=== PATIENT | male | born 1955 | race Caucasian/White ===

== ENCOUNTER 2021-04-15 08:27 | Emergency (ER) | payer OTHER, SELFPAY ==
[2021-04-15 08:39] VITALS: BP 171/106; PULSE 120; RESP 16; TEMP 37.1; O2SAT 99
--- NOTE | 2021-04-15 09:08 | ED.GENADULT ---
HPI - General Adult General Chief complaint: Unspecified Stated complaint: meat stuck in throat Time Seen by Provider: 04/15/21 09:00 Source: patient and RN notes reviewed Mode of arrival: ambulatory Limitations: no limitations History of Present Illness HPI narrative: 65-year-old male presents with concern for a piece of steak lodged in his throat. Reports this happened last night after dinner. Reports this is happened to him before and he is usually able to get it dislodged, however is not able to get it dislodge this time. He denies any trouble breathing. Reports he is able to swallow saliva, however it is not easy so he has been spitting his saliva into a cup. He reports a history of GERD. MD complaint: Food bolus Related Data Home Medications Medication Instructions Recorded Confirmed No Home Medications 04/15/21 04/15/21 Allergies Allergy/AdvReac Type Severity Reaction Status Date / Time No Known Allergies Allergy Verified 04/15/21 09:07 Review of Systems Review of Systems: CONSTITUTIONAL: Denies malaise, chills, sweats, or fever. ENT: Reports food stuck in his esophagus CARDIOVASCULAR: Denies chest pain, palpitations, or edema. RESPIRATORY: Denies cough or dyspnea. GASTROINTESTINAL: Denies nausea, vomiting All systems reviewed & are unremarkable except as noted in HPI and below PMFSH Comments At time of signature, agree with nursing past medical, surgical, social and family history. There is no relevant family history pertinent to the presenting complaint Exam Narrative: GENERAL: Well-appearing, well-nourished, and in no acute distress. HEAD: Normocephalic, atraumatic. EYES: PERRLA, sclera clear ENT: Nares clear. Mucous membranes moist. Oropharynx without edema, erythema or lesions.No FB visible NECK: Supple. CHEST: No respiratory distress. Clear to auscultation. No bony deformities, no asymmetry. Speaks in full sentences. HEART: Regular rate and rhythm SKIN: Warm, dry NEURO: Alert and oriented x3. PSYCH: Normal mood and affect Course Course Emergency Course: Consulted with [facility] emergency room do not have GI on-call today. Consulted with Dr. Rivas office who is able to see the patient today. Patient agreeable to this plan. Patient is aware of, understands and agrees to be seen by gastroenterology. Patient agrees to proceed directly to idea man office Portions of this record may have been created with voice recognition software Vital Signs Vital signs: Vital Signs Temperature 98.7 F 04/15/21 08:39 Pulse Rate 120 H 04/15/21 08:39 Respiratory Rate 16 04/15/21 08:39 Blood Pressure 171/106 H 04/15/21 08:39 Pulse Oximetry 99 04/15/21 08:39 Temperature 98.7 F 04/15/21 08:39 Pulse Rate 120 H 04/15/21 08:39 Respiratory Rate 16 04/15/21 08:39 Blood Pressure 171/106 H 04/15/21 08:39 Pulse Oximetry 99 04/15/21 08:39 Reviewed. Pt has been instructed to follow up with his primary care provider within the next week regarding his elevated blood pressure today. Medical Decision Making MDM Narrative Medical decision making narrative: Exam findings and history warrant further treatment; patient is non-toxic appearing and is in no distress. Patient is appropriate for outpatient treatment and follow-up. Vital Signs Vital Signs: Vital Signs Temperature 98.7 F 04/15/21 08:39 Pulse Rate 120 H 04/15/21 08:39 Respiratory Rate 16 04/15/21 08:39 Blood Pressure 171/106 H 04/15/21 08:39 Pulse Oximetry 99 04/15/21 08:39 Temperature 98.7 F 04/15/21 08:39 Pulse Rate 120 H 04/15/21 08:39 Respiratory Rate 16 04/15/21 08:39 Blood Pressure 171/106 H 04/15/21 08:39 Pulse Oximetry 99 04/15/21 08:39 Critical Care Time Critical Care Time Critical Care Time: No Discharge Plan Discharge Clinical Impression: Foreign body in esophagus Qualifiers: Encounter type: initial encounter Qualified Code(s): T18.108A - Unspecified for
== END 2021-04-15 09:42 | disposition home or self-care (01) ==
PROVIDERS: Emergency Provider Nurse Practitioner
DX: T18.108A Unspecified foreign body in esophagus causing other injury, initial encounter (principal); X58.XXXA Exposure to other specified factors, initial encounter
CPT/HCPCS: 99212; G0463; J7120

== ENCOUNTER 2021-04-15 09:48 | Day surgery (SDC) | payer OTHER, SELFPAY ==
[2021-04-15 10:27] VITALS: BP 173/106; PULSE 119; RESP 20; TEMP 37; O2SAT 98
[2021-04-15] MEDS: LACTATED RINGERS 1,000 ML 150 ML IV CONT (10:37)
[2021-04-15 10:38] VITALS: BMI 29.5
--- NOTE | 2021-04-15 10:41 | WPDGICN ---
Assessment and Plan Assessment and plan (1) Foreign body in esophagus: Qualifiers: Encounter type: initial encounter Qualified Code(s): T18.108A - Unspecified foreign body in esophagus causing other injury, initial encounter Code(s): T18.108A - Unspecified foreign body in esophagus causing other injury, initial encounter Status: Acute Assessment and Plan: Patient has a food impaction was eating steak last evening. Unable to pass throughout the esophagus. He has been unable to eat or swallow subsequently. EGD will be performed to evaluate treat. (2) Dysphagia: Code(s): R13.10 - Dysphagia, unspecified Status: Acute Assessment and Plan: Patient has longstanding history of difficulty swallowing. Suspicious for esophageal narrowing. This will be evaluated at time of EGD. Suspect he has GE reflux underlying this symptomatology. GI Consult Note Consult date/time: 04/15/21 10:41 HPI: Herbert Landa is a 65 year old male Presents with a food impaction. Patient in usual state of health but was eating a steak last evening. He was eating in a hurry. He subsequently had 5 piece stuck in his chest. Abdomen was subsequently unable to eat or swallow. He has had excess saliva production. And unable to swallow this morning. For this reason he presented to urgent care. It was determined he likely had a food impaction. Subsequently referred to our service for evaluation and treatment. Patient states he has had difficulty swallowing for many years. States that large pieces of food will catch in the mid substernal portion of the chest. He denies any heartburn. He takes no medications for this. Family history is noncontributory. Review of Systems Review of Systems: All systems reviewed & are unremarkable except as noted in HPI and below Meds Home Medications and Allergies Home Medications Medication Instructions Recorded Confirmed Type No Home Medications 04/15/21 04/15/21 History Allergies Allergy/AdvReac Type Severity Reaction Status Date / Time No Known Allergies Allergy Verified 04/15/21 10:26 Vital Signs Vital Signs - 24 hr 04/15/21 10:27 Temperature 98.6 F Pulse Rate 119 H Respiratory Rate 20 Blood Pressure 173/106 H Pulse Oximetry 98 Exam Narrative: Physical exam reveals patient to be alert. Vital signs stable. HEENT exam is unremarkable. Patient is anicteric. Lungs are clear to auscultation and percussion. Heart is without murmur or extra sounds. Abdominal exam bowel sounds are present soft nontender with no organomegaly. Digital rectal exam deferred at this time.
--- NOTE | 2021-04-15 10:50 | WPDANESEPPF ---
Anes - Initial Pre Proc Eval Procedure: Operation Date: 04/15/21 11:30 Proposed Procedures p Esophagogastroduodenoscopy - Herbert Dobbins MD Date/Time: 04/15/21 10:50 Surgeon: Herbert Dobbins MD Pre Op Diagnosis: food bolus Patient Data Age: 65 Gender: M Height: 1.85 m Weight: 101.5 kg Last Vital Signs Temp 37.0 C 04/15/21 10:27 Pulse 119 H 04/15/21 10:27 Resp 20 04/15/21 10:27 BP 173/106 H 04/15/21 10:27 Pulse Ox 98 04/15/21 10:27 Allergies Allergy/AdvReac Type Severity Reaction Status Date / Time No Known Allergies Allergy Verified 04/15/21 10:26 Home Medications Medication Instructions Recorded Confirmed Type No Home Medications 04/15/21 04/15/21 History Patient hx anesthesia problems: none Family hx anesthesia problems: none Results Review: All pre-operative results and documents have been reviewed as part of the pre-operative evaluation. [facility] Social History Social History Alcohol intake: current Drinks per week: 6 Living arrangements: with family Spiritual care concerns: No Anes - Eval Final PreProcedure Day of Procedure 04/15/21 10:50 Patient weight: overweight Heart: regular rate and rhythm Lungs: clear to auscultation and normal air movement Airway: Mallampati scale class II Neurological: alert and oriented Last oral intake: >/= 8 hours ASA classification: II Emergent: no Anesthetic plan: proceed Anesthesia type and monitoring: general ETT Results Review: All pre-operative results and documents have been reviewed as part of the pre-operative evaluation. Informed Consent: The patient's anesthetic plan and its attendant risks and benefits were discussed with the patient/family/POA. Questions were solicited and answers provided to the satisfaction of the patient/family/POA.
[2021-04-15 11:44] VITALS: BP 113/72; PULSE 97; RESP 26; O2SAT 98
[2021-04-15 11:54] VITALS: BP 131/78; PULSE 85; RESP 21; O2SAT 97
[2021-04-15 12:04] VITALS: BP 130/80; PULSE 84; RESP 23; O2SAT 97
== END 2021-04-15 12:24 | disposition home or self-care (01) ==
PROVIDERS: PCP Family Medicine; Visit Provider Internal Medicine Gastroenterology
PROC: 0DJ08ZZ Inspection of Upper Intestinal Tract, Via Natural or Artificial Opening Endoscopic (ICD-10-PCS; CPT 43235; principal; 2021-04-15 11:30)
DX: T18.128A Food in esophagus causing other injury, initial encounter (principal); K22.2 Esophageal obstruction
CPT/HCPCS: 43247; J2704; J7120

== ENCOUNTER 2021-06-02 00:40 | Day surgery (SDC) | payer OTHER, SELFPAY ==
[2021-05-14 14:34] VITALS: BMI 30.5
[2021-06-02 09:47] VITALS: BP 186/103; PULSE 79; RESP 20; TEMP 36.8; O2SAT 99
[2021-06-02] MEDS: LACTATED RINGERS 1,000 ML 150 ML IV CONT (09:51)
--- NOTE | 2021-06-02 10:05 | P.CONGI_ITS ---
Assessment and Plan Assessment and plan (1) Dysphagia: Code(s): R13.10 - Dysphagia, unspecified Status: Acute Assessment and Plan: Patient presents for evaluation of dysphagia. He is known to have esophageal stricture after removal of food impaction food bolus was 6 weeks ago. Patient denies heartburn having taken omeprazole 20mg p.o. daily for 1 month. He does continue to have difficulty swallowing. EGD today with consideration of esophageal stricture dilatation is being planned. Long-term use of PPI is suggested as recurrence is very common. GI Consult Note Consult date/time: 06/02/21 10:05 HPI: Herbert Landa is a 65 year old male Presents for EGD. Patient has a hi story of difficulty swallowing. He presented 6 weeks ago with food impaction. After that he was placed on omeprazole 20mg p.o. daily. He denies any heartburn. He does complain of difficulty swallowing large pieces of food seems to catch and passed slowly through the mid chest. He denies any weight loss. He has had no bleeding. Family history is noncontributory. Patient presents today for dilatation of esophageal stricture. Review of Systems Review of Systems: All systems reviewed & are unremarkable except as noted in HPI and below PMFSH Social History Social History Smoking status: Never smoker Alcohol intake: current Drinks per week: 7 Living arrangements: with family Spiritual care concerns: No Meds Home Medications and Allergies Home Medications Medication Instructions Recorded Confirmed Type No Home Medications 04/15/21 06/02/21 History Allergies Allergy/AdvReac Type Severity Reaction Status Date / Time No Known Allergies Allergy Verified 06/02/21 09:46 Vital Signs Vital Signs - 24 hr 06/02/21 09:47 Temperature 98.2 F Pulse Rate 79 Respiratory Rate 20 Blood Pressure 186/103 H Pulse Oximetry 99 Exam Narrative: Physical exam reveals patient be alert. Vital signs stable. HEENT exam is unremarkable. Patient is anicteric. Lungs are clear to auscultation and percussion heart is without murmur or extra sounds. Abdominal exam bowel sounds are present soft nontender with no hepatosplenomegaly. Rectal exam deferred at this time.
--- NOTE | 2021-06-02 10:29 | P.PNAN_ITS ---
Anes - Initial Pre Proc Eval Procedure: Operation Date: 06/02/21 10:45 Proposed Procedures p Esophagogastroduodenoscopy - Herbert Dobbins MD Date/Time: 06/02/21 10:29 Surgeon: Herbert Dobbins MD Pre Op Diagnosis: esophageal stricture Patient Data Age: 65 Gender: M Height: 1.85 m Weight: 103.9 kg Last Vital Signs Temp 98.2 F 06/02/21 09:47 Pulse 79 06/02/21 09:47 Resp 20 06/02/21 09:47 BP 186/103 H 06/02/21 09:47 Pulse Ox 99 06/02/21 09:47 Allergies Allergy/AdvReac Type Severity Reaction Status Date / Time No Known Allergies Allergy Verified 06/02/21 09:46 Home Medications Medication Instructions Recorded Confirmed Type No Home Medications 04/15/21 06/02/21 History Patient hx anesthesia problems: none Family hx anesthesia problems: none Results Review: All pre-operative results and documents have been reviewed as part of the pre-operative evaluation. [facility] Social History Social History Smoking status: Never smoker Alcohol intake: current Drinks per week: 7 Living arrangements: with family Spiritual care concerns: No Anes - Eval Final PreProcedure Day of Procedure 06/02/21 10:29 Patient weight: obese Heart: regular rate and rhythm Lungs: clear to auscultation Airway: Mallampati scale class II Neurological: alert and oriented Last oral intake: >/= 8 hours ASA classification: II Emergent: no Anesthetic plan: proceed Anesthesia type and monitoring: general GIVS and standard monitoring Results Review: All pre-operative results and documents have been reviewed as part of the pre-operative evaluation. Informed Consent: The patient's anesthetic plan and its attendant risks and benefits were discussed with the patient/family/POA. Questions were solicited and answers provided to the satisfaction of the patient/family/POA.
[2021-06-02 10:53] VITALS: BP 153/100; PULSE 66; RESP 22
[2021-06-02 11:03] VITALS: BP 152/90; PULSE 71; RESP 17
[2021-06-02 11:13] VITALS: BP 156/93; PULSE 62; RESP 16
== END 2021-06-02 11:37 | disposition home or self-care (01) ==
PROVIDERS: Visit Provider Internal Medicine Gastroenterology
PROC: 0DJ08ZZ Inspection of Upper Intestinal Tract, Via Natural or Artificial Opening Endoscopic (ICD-10-PCS; CPT 43235; principal; 2021-06-02 10:45)
DX: R13.10 Dysphagia, unspecified (principal); K20.80 Other esophagitis without bleeding; E66.9 Obesity, unspecified; Z68.30 Body mass index [BMI] 30.0-30.9, adult
CPT/HCPCS: 43239; 88305; J2704; J7120

== ENCOUNTER 2022-02-04 12:48 | Outpatient (CLI) | payer OTHER, SELFPAY ==
--- NOTE | ~2022-02-04 | XR_ITS ---
EXAMINATION: XR foot LT min 3V, XR foot RT min 3V DATE: 02/04/2022 13:07 INDICATION: Gout with pain and swelling throughout both feet TECHNIQUE: 1. Dorsoplantar, two oblique and lateral views of the left foot were obtained. 2. Dorsoplantar, two oblique and lateral views of the right foot were obtained. COMPARISON: None. FINDINGS: Bone alignment is normal at both feet. No fractures. Juxta articular erosions with sclerotic margins and overhanging edges at the heads of the bilateral first metatarsals, the medial base of the lateral first proximal phalanges and at both sides of the right first interphalangeal joint. Moderate polyar ticular osteoarthritis at the bilateral first metatarsophalangeal and interphalangeal joints as well as at a few of the distal interphalangeal joints. Mild osteoarthritis at many of the remaining joints in the bilateral feet. Moderate to large bilateral Achilles and plantar calcaneal spurs. Additional small heterotopic ossicles along the bilateral plantar aponeurosis. Soft tissue swelling about the le ft ankle. No ankle joint effusions. IMPRESSION: 1. Several juxta articular erosions at the bilateral first metatarsophalangeal and right first interp halangeal joints consistent with provided history of gout. 2. Mild to moderate polyarticular osteoarthritis in the bilateral feet most prominent at the first me tatarsophalangeal and a few distal interphalangeal joints. Reviewed, dictated and finalized at location A. IMPRESSION: 1. Several juxta articular erosions at the bilateral first metatarsophalangeal and right first interphalangeal joints consistent with provided history of gout . 2. Mild to moderate polyarticular osteoarthritis in the bilateral feet most pro minent at the first metatarsophalangeal and a few distal interphalangeal joints .
[2022-02-04 14:58] LABS: Uric Acid 6.9 mg/dL (3.5-8.5)
== END 2022-02-04 12:49 | disposition home or self-care (01) ==
PROVIDERS: PCP Internal Medicine; Visit Provider Internal Medicine
DX: M19.072 Primary osteoarthritis, left ankle and foot (principal); M19.071 Primary osteoarthritis, right ankle and foot; M10.9 Gout, unspecified; M79.89 Other specified soft tissue disorders
CPT/HCPCS: 36415; 73630; 84550

== ENCOUNTER 2022-07-09 13:52 | Outpatient (CLI) | payer OTHER, SELFPAY ==
--- NOTE | ~2022-07-09 | XR_ITS ---
XR shoulder LT min 2V DATE: 07/09/2022 14:07 INDICATION: Left shoulder pain, limited upward mobility. No known injury. TECHNIQUE: 4 views COMPARISON: None FINDINGS: No fracture or dislocation, periosteal reaction or bone destruction or significant abnormal soft tissue calcification of the left shoulder. Aortic calcification. IMPRESSION: No significant abnormality of left shoulder Reviewed, dictated and finalized at location B. [employer]
== END 2022-07-09 13:53 | disposition home or self-care (01) ==
PROVIDERS: PCP Internal Medicine; Visit Provider Nurse Practitioner Family
DX: M25.512 Pain in left shoulder (principal)
CPT/HCPCS: 73030

== ENCOUNTER 2022-07-14 13:53 | Outpatient (CLI) | payer OTHER, SELFPAY ==
[2022-07-14 16:39] LABS: Alanine Aminotransferase 28 U/L (6-50); Albumin Level 4.3 g/dL (3.5-5.1); Alkaline Phosphatase 102 U/L (38-126); Anion Gap 8 mmol/L (8-16); Aspartate Amino Transferase 30 U/L (17-59); Bilirubin,Total 0.6 mg/dL (0.2-1.3); Blood Urea Nitrogen 25 mg/dL (9-20); Calcium 9.4 mg/dL (8.4-10.2); Carbon Dioxide 26 mmol/L (22-30); Chloride 106 mmol/L (98-107); Cholesterol 201 mg/dL (0-200); Estimated Glomerular Filt Rate > 60; Glucose 82 mg/dL (65-110); HDL Direct 66 mg/dL; Potassium 4.2 mmol/L (3.4-5.0); Sodium 140 mmol/L (137-145); Triglycerides 87 mg/dL (<150)
[2022-07-14 16:53] LABS: LDL Cholesterol Direct 94 mg/dL
[2022-07-14 17:11] LABS: Prostate Specific Antigen 1.7 ng/mL (< OR = 4.0)
== END 2022-07-14 13:54 | disposition home or self-care (01) ==
LOC: ANHLAB 13:54
PROVIDERS: PCP Internal Medicine; Visit Provider Nurse Practitioner Family
DX: Z00.00 Encounter for general adult medical examination without abnormal findings (principal); I10 Essential (primary) hypertension; R00.0 Tachycardia, unspecified; Z12.5 Encounter for screening for malignant neoplasm of prostate
CPT/HCPCS: 36415; 80053; 80061; 84153; 84443; G0103

== ENCOUNTER 2022-09-22 07:24 | Outpatient (CLI) | payer OTHER, SELFPAY ==
--- NOTE | ~2022-09-22 | MR_ITS ---
MRI of the left shoulder Technique: Axial proton-density fat-sat images, coronal proton density fat-sat and T2 fat-sat images, and sagittal T1-weighted and T2 fat-sat images were acquired. Clinical History: Pain Findings: There is moderate AC joint degenerative change present. Small subacromial spur noted. Corac oclavicular, coracoacromial, and coracohumeral ligaments appear intact. There is full-thickness tear involving nearly entire supraspinatus tendon, with fluid-filled gap wilfrid uring 2.5 x 1.9 cm. A few the posterior most fibers of the supraspinatus tendon may remain intact. In fraspinatus tendon is intact, without partial or full-thickness tear. There is mild tendinosis. Subsc apularis tendon is intact, with mild to moderate tendinosis. Tendon of the long head of the biceps is intact. No labral tear identified. Small glenohumeral joint effusion present, with probable associated fluid in the biceps tendon sheath and subscapularis recess. Inferior glenohumeral ligament is intact. No significant degenerative massey ge of the glenohumeral joint. No muscle atrophy or edema. Impression: Full-thickness tear involving essentially the entire supraspinatus tendon, as detailed above. Mild to moderate background rotator cuff tendinosis. Small glenohumeral joint effusion with associated fluid distention of the biceps tendon sheath and merchant bscapularis recess. Moderate AC joint degenerative change. Reviewed, dictated and finalized at location . Impression: Full-thickness tear involving essentially the entire supraspinatus tendon, as d etailed above. Mild to moderate background rotator cuff tendinosis. Small glenohumeral joint effusion with associated fluid distention of the bicep s tendon sheath and subscapularis recess. Moderate AC joint degenerative change.
== END 2022-09-22 07:25 | disposition home or self-care (01) ==
PROVIDERS: PCP Nurse Practitioner Family; Visit Provider Nurse Practitioner Family
DX: M25.412 Effusion, left shoulder (principal); M19.012 Primary osteoarthritis, left shoulder
CPT/HCPCS: 73221

== ENCOUNTER 2023-04-21 14:57 | Outpatient (CLI) | payer OTHER, SELFPAY ==
[2023-04-21 16:36] LABS: Basophils Absolute Auto 0.1 K/mm3 (0.0-0.1); Basophils Percent Auto 1.1 % (0.2-1.2); Eosinophils Absolute Auto 0.3 K/mm3 (0-0.3); Eosinophils Percent Auto 4.8 % (0-4.4); Hematocrit 37.9 % (42.0-52.0); Hemoglobin 12.3 g/dL (14.0-18.0); Immature Granulocyte Absolute 0.01 K/mm3 (0.00-0.031); Immature Granulocyte Percent A 0.2 % (0-0.5); Lymphocytes Absolute Auto 1.93 K/mm3 (0.9-3.2); Lymphocytes Percent Auto 29.2 % (18.3-44.2); Mean Corpuscular HGB Conc 32.5 g/dl (32-36); Mean Corpuscular Hemoglobin 27.3 pg (26-34); Mean Corpuscular Volume 84.2 fl (80-100); Monocytes Absolute Auto 0.6 K/mm3 (0.1-0.6); Monocytes Percent Auto 8.5 % (2.6-8.5); Neutrophils Absolute Auto 3.7 K/mm3 (1.3-6.7); Neutrophils Percent Auto 56.2 % (45.5-73.1); Platelet Count Result 237 k/mm3 (150-375); Red Cell Distribution Width 13.5 % (11.5-14.5); White Blood Count 6.6 K/mm3 (4.5-10.0)
[2023-04-21 17:40] LABS: Alanine Aminotransferase 27 U/L (6-50); Albumin Level 4.2 g/dL (3.5-5.1); Alkaline Phosphatase 82 U/L (38-126); Anion Gap 5 mmol/L (8-16); Aspartate Amino Transferase 33 U/L (17-59); Bilirubin,Total 0.4 mg/dL (0.2-1.3); Blood Urea Nitrogen 22 mg/dL (9-20); Calcium 9.2 mg/dL (8.4-10.2); Carbon Dioxide 29 mmol/L (22-30); Chloride 104 mmol/L (98-107); Estimated Glomerular Filt Rate > 60; Glucose 87 mg/dL (65-110); Sodium 138 mmol/L (137-145); Uric Acid 5.3 mg/dL (3.5-8.5)
[2023-04-22 04:39] LABS: Hemoglobin A1C 5.3 % (<5.7)
== END 2023-04-21 14:58 | disposition home or self-care (01) ==
LOC: ANHLAB 14:59
PROVIDERS: PCP Nurse Practitioner Family; Visit Provider Nurse Practitioner Family
DX: R73.01 Impaired fasting glucose (principal); M10.9 Gout, unspecified; I10 Essential (primary) hypertension
CPT/HCPCS: 36415; 80053; 83036; 84550; 85025

== ENCOUNTER 2023-05-11 15:24 | Outpatient (CLI) | payer OTHER, SELFPAY ==
--- NOTE | 2023-05-11 15:30 | ECG_ITS ---
Measurements Intervals [place] Rate: 72 P: 27 UT: 180 QRS: -18 QRSD: 97 T: 45 QT: 369 QTc: 404 Interpretive Statements SINUS RHYTHM DELAYED PRECORDIAL R/S TRANSITION VOLTAGE CRITERIA FOR LVH BASELINE ARTIFACT- I, III, AVR, AVL, AVF BORDERLINE ECG NO PREVIOUS ECG AVAILABLE FOR COMPARISON Electronically Signed On 05-11-2023 15:49:06 [employer] by Jason Chapin D.O.
== END 2023-05-11 15:25 | disposition home or self-care (01) ==
PROVIDERS: PCP Nurse Practitioner Family; Visit Provider Orthopaedic Surgery
DX: I10 Essential (primary) hypertension (principal)
CPT/HCPCS: 93005

== ENCOUNTER 2023-05-13 00:53 | Day surgery (SDC) | payer OTHER, SELFPAY ==
[2023-05-10 13:46] VITALS: BMI 31.7
--- NOTE | 2023-05-10 13:55 | PC.NURSE ---
PRE-OP INSTRUCTIONS, PLEASE READ CAREFULLY Report to the Outpatient Waiting Room, entrance under the green pavilion located off [facility], at time _0600_ on date _05/13/23_. Planned Procedure Time: _0730_. Time changes happen often and if your time is changed the preop area will call you the afternoon before. - You and your visitor will be asked to self-screen and do not enter if you have any COVID symptoms. - A mask is optional within the hospital at this time. Patients may have clear liquids (water, carbonated beverages, clear teas, apple juice) until 3 hours prior to surgery (0430 AM) with a maximum of 20 ounces. - No food from midnight until time of surgery Take the following medications with a SIP of water the morning of surgery: _NONE_ DO NOT STOP ANY OF YOUR OTHER PRESCRIPTION MEDICATIONS PRIOR TO SURGERY ?EXCEPT THE FOLLOWING Medications to discontinue per physician _MELOXICAM PER DR. CARTWRIGHT'S INSTRUCTIONS - CALL FOR INSTRUCTIONS_ Date to take last dose Please no make-up, nail brazilian, hairspray, perfume, deodorant, or body powder the day of surgery. No jewelry (including any body piercings) or valuables the day of surgery, leave them at home. Please take a shower or bath the night before, or the morning of, surgery with an antibacterial soap. Wear comfortable, loose fitting clothing. Children are encouraged to wear pajamas. - Jewelry must be removed prior to entering the operating room. Rings and piercings that are not removed may be cut off. - The hospital will not accept responsibility for valuables. - Please leave all valuables, including medications, at home the day of surgery. If you are going home after surgery, a licensed lunch truck driver must drive you home. - NO public transportation without another adult if you receive anesthesia. - We recommend that an adult stay with you for 24 hours following discharge. - We also recommend that you do not drive, make important decision, drink alcoholic beverages, or take any drugs that were not prescribed by your health care provider for at least 24 hours after your discharge time. Follow any additional instructions given to you from your surgeon. If you or anyone in your household have experienced Covid symptoms in the past week, please notify your surgeon or the nurse liaison at the phone number below for possible testing. Telephone instructions given to _PATIENT_and asked if any additional questions and then verbalized understanding. Patient advised to call surgeon office or pre surgery nurse liaison [phone] if any additional questions.
[2023-05-13] VITALS (7 sets, daily range): BP systolic 111–150; BP diastolic 63–95; PULSE 81–101; RESP 14–18; TEMP 36.1–36.8; O2SAT 96–100
[2023-05-13] MEDS: CELECOXIB 200 MG CAPSULE PO (06:45)
[2023-05-13] MEDS: ACETAMINOPHEN 500 MG TABLET 1000 MG PO (06:45)
[2023-05-13] MEDS: LACTATED RINGERS 1,000 ML 30 ML IV CONT ×2 (06:46→10:07)
--- NOTE | 2023-05-13 07:09 | WPDHPUPDATE1 ---
History and Physical Update Update Date/Time: 05/13/23 07:09 History and Physical has been reviewed, including an updated exam of the patient. There are NO changes in the patient's condition. Risks, benefits, and alternatives have been discussed and questions answered. Patient agrees to proceed with procedure.
--- NOTE | 2023-05-13 07:20 | WPDANESEPPF ---
Anes - Initial Pre Proc Eval Procedure: Operation Date: 05/13/23 07:30 Proposed Procedures p Left Rotator Cuff Repair - John Patterson MD Date/Time: 05/13/23 07:20 Surgeon: John Patterson MD Pre Op Diagnosis: Left rotator cuff tear Patient Data Age: 67 Gender: M Height: 1.85 m Weight: 109.2 kg Last Vital Signs Temp 36.8 C 05/13/23 06:46 Pulse 101 H 05/13/23 06:46 Resp 14 05/13/23 06:46 BP 147/91 H 05/13/23 06:46 Pulse Ox 100 05/13/23 06:46 O2 Del Method Room Air 05/13/23 06:46 Allergies Allergy/AdvReac Type Severity Reaction Status Date / Time No Known Allergies Allergy Verified 05/13/23 07:02 Home Medications Medication Instructions Recorded Confirmed Type allopurinol 100 mg tablet 100 mg PO DAILY #90 tabs 12/23/21 05/10/23 Rx valsartan 160 mg tablet 160 mg PO DAILY #90 tabs 01/11/23 05/10/23 Rx meloxicam 15 mg tablet 15 mg PO DAILY #30 tabs 03/21/23 05/10/23 Rx omeprazole 20 mg capsule,delayed 20 mg PO DAILY #30 caps 03/21/23 05/10/23 Rx release benzoyl peroxide 5 % topical gel 1 applic topical DAILY #42.5 grams 04/27/23 05/10/23 Rx chlorhexidine gluconate 4 % 1 applic topical ONCE #237 mL 04/27/23 05/10/23 Rx topical liquid (Hibiclens) clindamycin phosphate 1 % topical 1 applic topical DAILY #30 grams 04/27/23 05/10/23 Rx gel Patient hx anesthesia problems: none Family hx anesthesia problems: none Results Review: All pre-operative results and documents have been reviewed as part of the pre-operative evaluation. [facility] Past Medical History Medical History Anemia Dilatation of esophagus Dysphagia Elevated pulse rate GERD (gastroesophageal reflux disease) Gout Hypertension Hypertension Left shoulder pain Rotator cuff tear, left Tear of left supraspinatus tendon Family History Family History Father Hypertension Sibling AA (alcohol abuse) Social History Social History Smoking status: Never smoker Second hand tobacco smoke exposure: No Alcohol intake: current Drinks per week: 10 Alcohol use details: BEER Substance use: never Substance use type: does not use Lack of Transportation: No Lack of Food: Never True Current Housing: I Have Housing Concerned About Future Housing: No Difficulty Paying Gas/Electric Bills: No Difficulty Paying for Meds: No Currently Unemployed: No Education: High School Diploma/GED Difficulty w/ Childcare or Family Care: No Living arrangements: with friend(s) Spiritual care concerns: No Anes - Eval Final PreProcedure Day of Procedure 05/13/23 07:20 Patient weight: obese Heart: regular rate and rhythm Lungs: clear to auscultation Airway: Mallampati scale class III Neurological: alert and oriented Last oral intake: >/= 8 hours ASA classification: II Emergent: no Anesthetic plan: proceed Anesthesia type and monitoring: general ETT and standard monitoring Results Review: All pre-operative results and documents have been reviewed as part of the pre-operative evaluation. Informed Consent: The patient's anesthetic plan and its attendant risks and benefits were discussed with the patient/family/POA. Questions were solicited and answers provided to the satisfaction of the patient/family/POA.
[2023-05-13] MEDS: ceFAZolin 2 GM/D5W 50 ML 2 GM/50 ML BAG IVPB (07:37)
--- NOTE | 2023-05-13 08:29 | WPDANESPNB ---
Anes - Peripheral Nerve Block Date/Time: 05/13/23 08:29 I have discussed with the patient/family/POA the placement of a peripheral nerve block for post-operative pain management, including associated risks, benefits, complications, and side effects. Alternative methods of post-operative analgesia were detailed. Questions were solicited and answers provided to the satisfaction of the patient/family/POA. Time-Out: A pre-procedural Time-Out was completed immediately before starting the procedure and confirmed: Patient Identification, Site, Procedure, Patient Position and the Availability of Requisite Equipment. Clinical Indications: Acute post-operative pain management requested by the operative surgeon. Nerve Block Insertion Note Anes-nerve block: interscalene left Patient position: supine Skin prep: chlorhexidine Needle: 22 gauge, stimulating, insulated echogenic needle. Needle length: 50 mm Technique: nerve stimulation lost at (mA) and ultrasound Technique comment: mid2mg [id number] Injectate: bupivacaine 0.5% with epi 5 mcg/ml (30ml no epi) and dexamethasone (mg) (4) Observations: tolerated well Complications: none Procedure start time:: 726 Procedure end time:: 733
--- NOTE | 2023-05-13 09:53 | W.PM.PROC2 ---
Procedure Note - Detailed Date of Procedure 05/13/23 Pre-op Diagnosis Left rotator cuff tear Post-op Diagnosis Same Procedure Performed REPAIR LEFT ROTATOR CUFF Surgeon John Patterson MD Anesthesia General Description of Procedure THE PATIENT WAS TAKEN TO THE OPERATING ROOM AND THEN INTUBATED AND PLACED IN THE BEACH CHAIR POSITION. THE LEFT UPPER EXTREMITY WAS PREPPED AND DRAPED IN THE NORMAL STERILE FASHION. AN INCISION WAS MADE IN BETWEEN THE BOGDAN-LATERAL ACROMION AND THE AC JOINT. THE FASCIA WAS IDENTIFIED. NEXT A MINI OPEN INCISION WAS MADE THROUGH THE DELTOID MUSCLE EXPOSING THE SUBACROMIAL SPACE. A LIMITED ACROMIOPLASTY WAS PREFORMED. THE ROTATOR CUFF WAS IDENTIFIED. THERE WAS A FULL THICKNESS TEAR. IT MEASURED APPROXIMATELY 3 CM X 2 CM AND THERE WAS QUITE A BIT OF RETRACTION. THE TEAR WAS MOBILIZED AND BURSAL TISSUE WAS REMOVED. SCAR TISSUE FROM THE UNDERSURFACE OF THE TEAR WAS REMOVED ALSO UNTIL THE CUFF EDGES WERE APPROXIMATED TO THE GREATER TUBEROSITY. THE GREATER TUBEROSITY WAS DEBRIDED TO BLEEDING BONE. 3 ARTHREX 4.75 SUTURE ANCHORS WERE PLACED IN TO GOOD BONE AND HAD VERY GOOD BITES. FREDDIE-TANYA TYPE REPAIRS WERE DONE WITH FIBER TAPE SUTURE TO THE ROTATOR CUFF AND THERE WAS GOOD APPROXIMATION TO THE GREATER TUBEROSITY. THERE WAS SOME MODERATE TENSION TO THE REPAIR. THERE WAS NO IMPINGEMENT ON THE REPAIR FROM THE ACROMION WITH RANGE OF MOTION. THE WOUND WAS IRRIGATED WITH COPIOUS AMOUNTS OF ANTIBIOTIC SOLUTION STERILE BETADINE AND H2O2 MIXED WITH WATER. THE DELTOID MUSCLE WAS REPAIRED WITH #2 FIBER WIRE AND 0 VICRYL SUTURE. THE SUBCUTANEOUS LAYER WAS APPROXIMATED WITH 2-0 VICRYL. THE SKIN WAS APPROXIMATED WITH 3-0 QUIL AND DERMABOND. STERILE DRESSING WAS APPLIED. PATIENT WAS EXTUBATED. Estimated Blood Loss -20.0 Complications No immediate complications Condition Stable Disposition PACU
[2023-05-13] MEDS: oxyCODONE HCL (*CRX) 5 MG TAB IR PO (11:05)
== END 2023-05-13 11:50 | disposition home or self-care (01) ==
PROVIDERS: PCP Nurse Practitioner Family; Visit Provider Orthopaedic Surgery
PROC: (CPT 23420; principal; 2023-05-13 07:30)
DX: M75.102 Unspecified rotator cuff tear or rupture of left shoulder, not specified as traumatic (principal); G89.18 Other acute postprocedural pain; I10 Essential (primary) hypertension; K21.9 Gastro-esophageal reflux disease without esophagitis; M10.9 Gout, unspecified; E66.9 Obesity, unspecified; Z68.31 Body mass index [BMI] 31.0-31.9, adult
CPT/HCPCS: 23412; 64415; A4565; A9270; C1713; J0690; J1100; J2250; J2371; J2405; J2704; J3010; J7120

== ENCOUNTER 2023-08-01 14:24 | Outpatient (CLI) | payer BC, SELFPAY ==
[2023-08-01 15:06] LABS: Basophils Absolute Auto 0.1 K/mm3 (0.0-0.1); Basophils Percent Auto 0.8 % (0.2-1.2); Eosinophils Absolute Auto 0.2 K/mm3 (0-0.3); Eosinophils Percent Auto 2.6 % (0-4.4); Hematocrit 40.6 % (42.0-52.0); Hemoglobin 13.2 g/dL (14.0-18.0); Immature Granulocyte Absolute 0.01 K/mm3 (0.00-0.031); Immature Granulocyte Percent A 0.1 % (0-0.5); Immature Reticulocyte Fraction 17.5 % (3.0-15.9); Lymphocytes Absolute Auto 1.96 K/mm3 (0.9-3.2); Lymphocytes Percent Auto 25.2 % (18.3-44.2); Mean Corpuscular HGB Conc 32.5 g/dl (32-36); Mean Corpuscular Hemoglobin 27.3 pg (26-34); Mean Corpuscular Volume 83.9 fl (80-100); Mean Platelet Volume 9.1 fl (7.4-10.4); Monocytes Absolute Auto 0.6 K/mm3 (0.1-0.6); Monocytes Percent Auto 8.2 % (2.6-8.5); Neutrophils Absolute Auto 4.9 K/mm3 (1.3-6.7); Neutrophils Percent Auto 63.1 % (45.5-73.1); Platelet Count Result 248 k/mm3 (150-375); Red Blood Count 4.84 M/mm3 (4.6-6.20); Red Cell Distribution Width 13.9 % (11.5-14.5); Reticulocyte Hemoglobin Conten 30.6 pg (28.2-35.7); Reticulocyte Percent 1.48 % (0.7-4.3); Reticulocytes Absolute 0.07 M/mm3 (0.02-0.1); White Blood Count 7.8 K/mm3 (4.5-10.0)
[2023-08-01 15:22] LABS: Alanine Aminotransferase 27 U/L (6-50); Albumin Level 4.2 g/dL (3.5-5.1); Alkaline Phosphatase 101 U/L (38-126); Anion Gap 8 mmol/L (8-16); Aspartate Amino Transferase 27 U/L (17-59); Bilirubin,Total 0.5 mg/dL (0.2-1.3); Blood Urea Nitrogen 21 mg/dL (9-20); Calcium 9.5 mg/dL (8.4-10.2); Carbon Dioxide 27 mmol/L (22-30); Chloride 106 mmol/L (98-107); Estimated Glomerular Filt Rate > 60; Glucose 106 mg/dL (65-110); Potassium 4.3 mmol/L (3.4-5.0); Sodium 141 mmol/L (137-145)
[2023-08-01 15:57] LABS: Iron 52 ug/dL (49-181)
[2023-08-01 16:06] LABS: Percent Iron Saturation 14 % (20-50)
== END 2023-08-01 14:25 | disposition home or self-care (01) ==
PROVIDERS: PCP Nurse Practitioner Family; Visit Provider Nurse Practitioner Family
DX: D64.9 Anemia, unspecified (principal); I10 Essential (primary) hypertension
CPT/HCPCS: 36415; 80053; 82607; 82728; 83540; 83550; 85025; 85046

== ENCOUNTER 2023-11-03 14:57 | Outpatient (CLI) | payer BC, SELFPAY ==
[2023-11-03 15:46] LABS: Basophils Absolute Auto 0.1 K/mm3 (0.0-0.1); Basophils Percent Auto 0.8 % (0.2-1.2); Eosinophils Absolute Auto 0.5 K/mm3 (0-0.3); Hematocrit 41.2 % (42.0-52.0); Hemoglobin 13.5 g/dL (14.0-18.0); Immature Granulocyte Absolute 0.07 K/mm3 (0.00-0.031); Immature Granulocyte Percent A 1.1 % (0-0.5); Lymphocytes Absolute Auto 1.43 K/mm3 (0.9-3.2); Lymphocytes Percent Auto 22.3 % (18.3-44.2); Mean Corpuscular HGB Conc 32.8 g/dl (32-36); Mean Corpuscular Hemoglobin 28.1 pg (26-34); Mean Corpuscular Volume 85.8 fl (80-100); Monocytes Absolute Auto 0.7 K/mm3 (0.1-0.6); Monocytes Percent Auto 10.4 % (2.6-8.5); Neutrophils Absolute Auto 3.8 K/mm3 (1.3-6.7); Neutrophils Percent Auto 58.4 % (45.5-73.1); Platelet Count Result 209 k/mm3 (150-375); Red Cell Distribution Width 14.1 % (11.5-14.5); White Blood Count 6.4 K/mm3 (4.5-10.0)
[2023-11-03 15:57] LABS: Alanine Aminotransferase 31 U/L (6-50); Albumin Level 4.4 g/dL (3.5-5.1); Alkaline Phosphatase 79 U/L (38-126); Anion Gap 7 mmol/L (4-12); Aspartate Amino Transferase 30 U/L (17-59); Bilirubin,Total 0.6 mg/dL (0.2-1.3); Blood Urea Nitrogen 21 mg/dL (9-20); Calcium 9.8 mg/dL (8.4-10.2); Carbon Dioxide 26 mmol/L (22-30); Chloride 107 mmol/L (98-107); Cholesterol 181 mg/dL (0-200); Estimated Glomerular Filt Rate > 60; Glucose 93 mg/dL (65-110); HDL Direct 52 mg/dL; Potassium 4.4 mmol/L (3.4-5.0); Sodium 140 mmol/L (137-145); Triglycerides 191 mg/dL (<150)
[2023-11-03 16:08] LABS: LDL Cholesterol Direct 101 mg/dL
[2023-11-03 16:28] LABS: Prostate Specific Antigen 1.8 ng/mL (< OR = 4.0)
[2023-11-03 17:09] LABS: Iron 165 ug/dL (49-181)
[2023-11-03 17:18] LABS: Percent Iron Saturation 50 % (20-50)
== END 2023-11-03 14:58 | disposition home or self-care (01) ==
LOC: ANHLAB 14:59
PROVIDERS: PCP Nurse Practitioner Family; Visit Provider Nurse Practitioner Family
DX: Z00.00 Encounter for general adult medical examination without abnormal findings (principal); Z12.5 Encounter for screening for malignant neoplasm of prostate; M10.9 Gout, unspecified; D50.9 Iron deficiency anemia, unspecified
CPT/HCPCS: 36415; 80053; 80061; 83540; 83550; 84153; 84550; 85025; G0103

== ENCOUNTER 2023-12-02 13:44 | Outpatient (CLI) | payer BC, SELFPAY ==
[2023-12-02 15:41] LABS: Uric Acid 6.3 mg/dL (3.5-8.5)
== END 2023-12-02 13:45 | disposition home or self-care (01) ==
PROVIDERS: PCP Nurse Practitioner Family; Visit Provider Nurse Practitioner Family
DX: M10.9 Gout, unspecified (principal)
CPT/HCPCS: 36415; 84550

== ENCOUNTER 2024-01-27 14:02 | Outpatient (CLI) | payer BC, SELFPAY | END 2024-01-27 14:03 | disposition home or self-care (01) | LOC: ANHLAB 14:03 | PROVIDERS: PCP Nurse Practitioner Family; Visit Provider Nurse Practitioner Family | DX: M10.9 Gout, unspecified (principal) | CPT/HCPCS: 36415; 84550 ==

== ENCOUNTER 2024-11-28 10:16 | Outpatient (CLI) | payer BC, SELFPAY ==
[2024-11-28 11:37] LABS: Basophils Percent Auto 0.7 % (0.2-1.2); Eosinophils Absolute Auto 0.3 K/mm3 (0-0.3); Eosinophils Percent Auto 4.5 % (0-4.4); Hemoglobin 13.9 g/dL (14.0-18.0); Immature Granulocyte Absolute 0.03 K/mm3 (0.00-0.031); Immature Granulocyte Percent A 0.5 % (0-0.5); Lymphocytes Absolute Auto 1.55 K/mm3 (0.9-3.2); Lymphocytes Percent Auto 25.8 % (18.3-44.2); Mean Corpuscular HGB Conc 32.3 g/dl (32-36); Mean Corpuscular Hemoglobin 27.9 pg (26-34); Mean Corpuscular Volume 86.2 fl (80-100); Mean Platelet Volume 9.5 fl (7.4-10.4); Monocytes Absolute Auto 0.5 K/mm3 (0.1-0.6); Neutrophils Absolute Auto 3.6 K/mm3 (1.3-6.7); Neutrophils Percent Auto 60.5 % (45.5-73.1); Platelet Count Result 225 k/mm3 (150-375); Red Blood Count 4.99 M/mm3 (4.6-6.20); Red Cell Distribution Width 14.2 % (11.5-14.5)
[2024-11-28 11:44] LABS: Hemoglobin A1C 5.7 % (<5.7)
[2024-11-28 11:49] LABS: Alanine Aminotransferase 30 U/L (6-50); Albumin Level 4.6 g/dL (3.5-5.1); Alkaline Phosphatase 97 U/L (38-126); Anion Gap 9 mmol/L (4-12); Aspartate Amino Transferase 35 U/L (17-59); Bilirubin,Total 0.5 mg/dL (0.2-1.3); Blood Urea Nitrogen 21 mg/dL (9-20); Calcium 9.9 mg/dL (8.4-10.2); Carbon Dioxide 26 mmol/L (22-30); Chloride 105 mmol/L (98-107); Cholesterol 224 mg/dL (0-200); Estimated Glomerular Filt Rate > 60; Glucose 99 mg/dL (65-110); HDL Direct 61 mg/dL; Potassium 4.4 mmol/L (3.4-5.0); Sodium 140 mmol/L (137-145); Triglycerides 154 mg/dL (<150); Uric Acid 4.5 mg/dL (3.5-8.5)
[2024-11-28 11:53] LABS: Iron 99 ug/dL (49-181)
[2024-11-28 12:00] LABS: LDL Cholesterol Direct 110 mg/dL
[2024-11-28 12:05] LABS: Percent Iron Saturation 27 % (20-50)
== END 2024-11-28 10:17 | disposition home or self-care (01) ==
PROVIDERS: PCP Nurse Practitioner Family; Visit Provider Nurse Practitioner Family
DX: D64.9 Anemia, unspecified (principal); I10 Essential (primary) hypertension; M10.9 Gout, unspecified; E66.9 Obesity, unspecified
CPT/HCPCS: 36415; 80053; 80061; 83036; 83540; 83550; 84550; 85025